=== PATIENT | male | born 1960 | race Caucasian/White ===

== ENCOUNTER 2018-03-20 07:00 | Day surgery (SDC) | payer OTHER ==
[~2018-03-20] VITALS: Ht 172.7 cm; Wt 94.0 kg
[~2018-03-20 07:00] MED LIST: SODIUM CHLORIDE 0.9% 1,000 ML IV ONE; THYROID MED PO; [UNRECOGNIZED DRUG - CODE] PO
[2018-03-20] MEDS ORDERED: ALBUTEROL SULFATE 2.5 MG/0.5 ML NEB SOLUTION NEB ONE ×2 (07:01→10:15)
[2018-03-20] MEDS ORDERED: LIDOCAINE HCL 2% 30 ML JELLY TP ONE (07:01)
[2018-03-20] MEDS ORDERED: BENZOCAINE 20% 50 MCG/SPRAY 57 GM TP ONE (07:01)
[2018-03-20] MEDS ORDERED: LIDOCAINE HCL 4% 50 ML SOLUTION TP ONE (07:01)
[2018-03-20] MEDS ORDERED: FAMO20 PO (07:29)
[2018-03-20] MEDS ORDERED: PRED10 PO (07:29)
[2018-03-20] MEDS ORDERED: LEVO25TA9 PO (07:29)
[2018-03-20] MEDS ORDERED: MONT10TA21 PO (07:29)
[2018-03-20] MEDS ORDERED: LOSA25TA21 PO (07:29)
[2018-03-20] MEDS ORDERED: SODIUM CHLORIDE 0.9% 1,000 ML IV ONE (07:30)
[2018-03-20] MEDS ORDERED: ADV250 IH (07:37)
[2018-03-20] MEDS ORDERED: BUDE10.2 IH (07:37)
[2018-03-20] MEDS ORDERED: MIDAZOLAM HCL 2 MG/2 ML VIAL ONE (08:09)
[2018-03-20] MEDS ORDERED: FentaNYL CITRATE-PF 100 MCG/2 ML VIAL ONE (08:10)
[2018-03-20] MEDS ORDERED: MethylPREDNISolone SOD SUCC 125 MG/2 ML VIAL IVP ONE (09:15)
[2018-03-20] MEDS ORDERED: MethylPREDNISolone SOD SUCC 125 MG/2 ML VIAL ONE (09:26)
[2018-03-20] MEDS ORDERED: 0.9% SODIUM CHLORIDE 5 ML NEB SOLUTION NEB ONE (10:10)
[2018-03-20] MEDS ORDERED: IPRATROPIUM BROMIDE 0.5 MG/2.5 ML NEB SOLUTION NEB ONE (10:15)
[2018-03-20] MEDS ORDERED: OXYGEN THERAPY IH SCH (20:00)
== END 2018-03-20 10:40 | disposition home or self-care (01) ==
LOC: SURGERY 07:00
PROVIDERS: ATTEND Internal Medicine Critical Care Medicine
DX: J38.4 Edema of larynx (principal); B37.0 Candidal stomatitis; J43.9 Emphysema, unspecified; I10 Essential (primary) hypertension; Z88.0 Allergy status to penicillin; Z88.2 Allergy status to sulfonamides; Z87.891 Personal history of nicotine dependence; Z98.890 Other specified postprocedural states; Z79.899 Other long term (current) drug therapy
CPT/HCPCS: 31623; 31624; 71045; 87015; 87070; 87101; 87205; 87206; 87220; 88108; 88312; J2250; J2930; J3010; J7030